=== PATIENT | male | born 1955 | race Caucasian/White ===

== ENCOUNTER → 2016-06-11 | Day surgery (SDC) | payer MEDICARE ==
[~2016-06-11] MED LIST: AMBIEN10 MG PO; AMITRIPTYLINE100 MG PO; ASPIRIN81 M2 PO; CHANTIX1 MG PO; FENOFIBRATE134 MG PO; FLOMAX0.4 M1 PO; GLIMEPIRIDE2 MG PO; LIPITOR40 MG PO; METFORMIN HCL500 M1 PO; PERCOCET 10/31 UDTA1 PO; PRAMIPEXOLE DI0.5 MG PO; RESTORIL15 MG PO; TOPROL XL100 MG PO; TRESIBA FL100 UNIT/1 SUBQ; ZESTRIL5 MG PO
--- NOTE | ~2016-06-11 | OR ---
Unit #: [id number] #: [id number] Patient: MINE DIAZ [id number] [address] [address] [id number] O MR#: [id number] NAME: MINE DIAZ ROOM: Date of Procedure: 06/11/2016 Admission Date: 06/11/2016 Surgeon: Everton Miller M.D. : 1955 Attending Physician: Everton Miller M.D. Primary Care Physician: Buddy Connolly M.D. OPERATIVE REPORT JOB NOTE: CC: [facility] PREOPERATIVE DIAGNOSES 1. Back pain. 2. Radiculopathy. 3. Degenerative lumbar disk disease with myelopathy. POSTOPERATIVE DIAGNOSES 1. Back pain. 2. Radiculopathy. 3. Degenerative lumbar disk disease with myelopathy. PROCEDURE PERFORMED Lumbar epidural steroid injection with intravenous sedation and fluoroscopic guidance for needle localization. INDICATIONS FOR PROCEDURE The patient is a 60-year-old male with return of back and right greater than left lower extremity pain due to multilevel multifactorial degenerative disk and spine disease. He is not a surgical candidate. He is generally treated medically with p.r.n. epidural steroid injections. Recent injection resulted in significant improvement in his leg pains that affect his back pain very much, so that we are going to take the second injection to help settle his back. DESCRIPTION OF PROCEDURE The patient was placed in the seated position. Standard monitors were applied. 3 mg of Versed were given for sedation and anxiolysis, which were adequate. Vital signs remained stable. Sterile prep and drape then of the lumbar area was performed. The skin then at the L4-L5 level was localized with 1% lidocaine. An 18-gauge [employer] needle was then advanced via loss of resistance technique and fluoroscopic guidance in toward the epidural space. After confirming proper positioning with fluoroscopy and radiographic contrast, 80 mg of Depo-Medrol and 4 mL of 0.5% lidocaine were deposited. The patient tolerated the procedure otherwise well and was discharged to recovery room in stable condition. Dictated by... Everton Miller M.D. P/modl Unit #: [id number] #: [id number] Patient: MINE DIAZ TD: 06/11/2016 21:39 JOB #: [id number] OPERATIVE REPORT X Everton Miller MD X PROCEDURE OPERATIVE NOTE
== END | disposition home or self-care (01) ==
LOC: CCSC 07:00
PROVIDERS: Pain Medicine Pain Medicine
PROC: 3E0R3BZ Introduction of Anesthetic Agent into Spinal Canal, Percutaneous Approach (ICD-10-PCS; 2016-06-11)
PROC: 3E0R33Z Introduction of Anti-inflammatory into Spinal Canal, Percutaneous Approach (ICD-10-PCS; principal; 2016-06-11 08:00)
DX: M51.16 Intervertebral disc disorders with radiculopathy, lumbar region (principal); M51.06 Intervertebral disc disorders with myelopathy, lumbar region; E11.9 Type 2 diabetes mellitus without complications; Z79.84 Long term (current) use of oral hypoglycemic drugs; I10 Essential (primary) hypertension; I25.2 Old myocardial infarction; Z79.899 Other long term (current) drug therapy
CPT/HCPCS: J1040; J2250

== ENCOUNTER → 2016-06-18 | Day surgery (SDC) | payer MEDICARE ==
--- NOTE | ~2016-06-18 | OR ---
Unit #: [id number] #: [id number] Patient: MINE DIAZ [id number] [address] [address] [id number] MR#: [id number] NAME: MINE DIAZ ROOM: Date of Procedure: 06/18/2016 Admission Date: 06/18/2016 Surgeon: Everton Miller M.D. : 1955 Attending Physician: Everton Miller M.D. Primary Care Physician: Buddy Connolly M.D. OPERATIVE REPORT PREOPERATIVE DIAGNOSES 1. Back pain. 2. Radiculopathy. 3. Degenerative disk disease with myelopathy. POSTOPERATIVE DIAGNOSES 1. Back pain. 2. Radiculopathy. 3. Degenerative disk disease with myelopathy. PROCEDURE PERFORMED Lumbar epidural steroid injection with intravenous sedation and fluoroscopic guidance for needle localization. INDICATIONS FOR PROCEDURE The patient is a 60-year-old male with return of back and right greater than left lower extremity pain due to multilevel degenerative disk and spine disease. It is not surgical in nature. He is treated medically with p.r.n. epidural steroids. Generally, he has done better with a series of injections rather than single p.r.n. injections. Based on his procedure and response of pathology, we are going to proceed with a repeat epidural steroid injection today. DESCRIPTION OF PROCEDURE The patient was placed in a seated position. Standard monitors were applied. 2 mg of Versed were given for sedation and anxiolysis, which were adequate. Vital signs remained stable. Sterile prep and drape then of the lumbar area was performed. The skin then at the L4-L5 level was localized with 1% lidocaine. An 18-gauge Sling[employer] needle was then advanced via loss of resistance technique and fluoroscopic guidance in toward the epidural space. After confirming proper positioning with fluoroscopy and radiographic contrast, 80 mg of Depo-Medrol and 4 mL of 0.125% bupivacaine were deposited. The patient tolerated the procedure otherwise well and was discharged to recovery room in stable condition. Dictated by... Everton Miller M.D. RAMEZ/nguyen TD: 06/18/2016 22:32 Unit #: [id number] #: [id number] Patient: MINE DIAZ JOB #: [id number] OPERATIVE REPORT X Everton Miller MD X PROCEDURE OPERATIVE NOTE
== END | disposition home or self-care (01) ==
LOC: CCSC 06:58
DX: M51.06 Intervertebral disc disorders with myelopathy, lumbar region (principal); M51.16 Intervertebral disc disorders with radiculopathy, lumbar region; J44.9 Chronic obstructive pulmonary disease, unspecified; E11.9 Type 2 diabetes mellitus without complications; I10 Essential (primary) hypertension; I25.2 Old myocardial infarction
CPT/HCPCS: J1040; J2250